=== PATIENT | male | born 1935 | race Caucasian/White ===

== ENCOUNTER → 2016-10-20 | Outpatient (CLI) | payer MEDICARE ==
[~2016-10-20] MED LIST: AMLO2.5T2 PO; AMLO5TAB2 PO; ASPI-496 PO; CARV-39 PO; CARV3.122 PO; CHOL20003 PO; CYAN50LO PO; FURO-93 PO; FURO20TA3 PO; GLIM2TAB2 PO; LISI2.5T PO; LISI40TA PO; POTA10TA31 PO; SIMV20TA3 PO; SIMV5TAB5 PO
== END | disposition home or self-care (01) ==
LOC: CVU 13:19
PROVIDERS: ATTEND Internal Medicine Cardiovascular Disease
DX: I87.2 Venous insufficiency (chronic) (peripheral) (principal); K21.9 Gastro-esophageal reflux disease without esophagitis
CPT/HCPCS: 93970

== ENCOUNTER 2016-12-09 10:16 | Emergency (ER) | payer MEDICARE ==
[~2016-12-09] VITALS: Ht 172.7 cm; Wt 114.0 kg
[2016-12-09 10:18] VITALS: BP 176/89
== END 2016-12-09 11:39 | disposition home or self-care (01) ==
LOC: ED 11:33
DX: M19.032 Primary osteoarthritis, left wrist (principal); M10.032 Idiopathic gout, left wrist; I10 Essential (primary) hypertension; E11.9 Type 2 diabetes mellitus without complications; Z90.49 Acquired absence of other specified parts of digestive tract
CPT/HCPCS: 29125; 36415; 84550; 85025; 99285

== ENCOUNTER 2017-12-22 14:00 | Emergency (ER) | payer MEDICARE ==
[~2017-12-22] VITALS: Ht 180.3 cm; Wt 110.7 kg
[~2017-12-22 14:00] MED LIST changes: +CHOL2000 PO; -CHOL20003 PO
[2017-12-22 16:09] LABS: ALBUMIN 3.7 g/dL (3.4-5.0); ANION GAP 10 mmol/L (5-15); BILIRUBIN, DIRECT 0.2 mg/dL (0.1-0.2); CALCIUM 8.3 mg/dL (8.5-10.1); CHLORIDE 110 mmol/L (98-107); CREATININE 1.95 mg/dL (0.7-1.3)
[2017-12-22 16:12] LABS: ALANINE AMINOTRANSFERASE 18 U/L (12-78); ALKALINE PHOSPHATASE 84 U/L (45-117); BILIRUBIN,INDIRECT 0.6 mg/dL (0.0-2.0); BILIRUBIN,TOTAL 0.8 mg/dL (0.2-1.0); TOTAL PROTEIN 7.1 g/dL (6.4-8.2)
[2017-12-22 16:25] LABS: BASOPHILS # (AUTO) 0.02 x10^3/uL (0-0.1); BASOPHILS % (AUTO) 0 % (0-1); EOSINOPHILS # (AUTO) 0.06 x10^3/uL (0-0.4); EOSINOPHILS % (AUTO) 1 % (1-7); LYMPHOCYTES % (AUTO) 15 % (22-44); MD NO; MEAN CORPUSCULAR HEMOGLOBIN 30.5 pg (27.5-34.5); MEAN CORPUSCULAR HGB CONC 33.9 g/dL (33.2-36.2); MEAN CORPUSCULAR VOLUME 89.8 fL (81-97); MEAN PLATELET VOLUME 9.9 fL (7.4-10.4); MONOCYTES # (AUTO) 0.81 x10^3/uL (0.2-0.8); MONOCYTES % (AUTO) 11 % (2-9); NEUTROPHILS # (AUTO) 5.41 x10^3/uL (1.8-6.8); NEUTROPHILS % (AUTO) 73 % (42-75); PLATELET COUNT 111 x10^3/uL (130-400); RED BLOOD COUNT 4.44 x10^6/uL (4.38-5.82); RED CELL DISTRIBUTION WIDTH 14.5 % (9.4-14.8)
[2017-12-22 17:27] VITALS: BP 164/78
[2017-12-26] MEDS ORDERED: ASPI-496 PO (08:44)
[2017-12-26] MEDS ORDERED: SODI325T PO (08:44)
[2017-12-29] MEDS ORDERED: GLIM1TAB PO (08:07)
[2017-12-29] MEDS ORDERED: AMIO200T42 PO (08:07)
[2017-12-29] MEDS ORDERED: METO-93 PO (08:07)
[2017-12-29] MEDS ORDERED: ISOS30TA8 PO (08:07)
[2017-12-29] MEDS ORDERED: SODI650T PO (08:07)
[2017-12-29] MEDS ORDERED: ATOR-2 PO (09:39)
== END 2017-12-22 18:05 | disposition home or self-care (01) ==
LOC: ED 17:00
DX: I87.2 Venous insufficiency (chronic) (peripheral) (principal); I50.9 Heart failure, unspecified; I10 Essential (primary) hypertension; E11.9 Type 2 diabetes mellitus without complications; M10.9 Gout, unspecified
CPT/HCPCS: 36415; 71045; 80048; 80076; 82040; 83735; 83880; 85025; 93005; 93970; 99285

== ENCOUNTER 2018-09-18 22:27 | Inpatient (IN) | payer MEDICARE ==
[~2018-09-18] VITALS: Ht 180.3 cm; Wt 102.2 kg
[~2018-09-18 22:27] MED LIST changes: +AMIO200T42 PO; +AMLO-150 PO; -AMLO5TAB2 PO; +ATOR-2 PO; +GLIM1TAB PO; +ISOS30TA8 PO; +METO-93 PO; +SIMV5TAB14 PO; -SIMV5TAB5 PO; +SODI325T PO; +SODI650T PO
--- NOTE | 2018-09-18 22:45 | NUR ---
PT PRESENTED WITH NON RADIATING CENTER CHEST PAIN THAT STARTED APPROX 1900 TODAY, DENIES SOB OR N/V. MONITORS APPLIED, SIDERAILS UP X2, CALL LIGHT WITHIN REACH. AWAITING ERP FOR EVAL AND ORDERS
[2018-09-18] MEDS ORDERED: SODIUM CHLORIDE FLUSH 10ML SYR IVF ONE (23:00)
[2018-09-18] MEDS ORDERED: AMLO2.5T5 PO (23:02)
[2018-09-18] MEDS ORDERED: VIT1CAPS42 PO ×2 (23:02→23:04)
[2018-09-18] MEDS ORDERED: ASCO500C2 PO (23:02)
[2018-09-18 23:25] LABS: BASOPHILS # (AUTO) 0.06 x10^3/uL (0-0.1); BASOPHILS % (AUTO) 1 % (0-1); EOSINOPHILS # (AUTO) 0.09 x10^3/uL (0-0.4); EOSINOPHILS % (AUTO) 1 % (1-7); LYMPHOCYTES # (AUTO) 1.12 x10^3/uL (1-3.4); LYMPHOCYTES % (AUTO) 15 % (22-44); MD NO; MEAN CORPUSCULAR HEMOGLOBIN 31.4 pg (27.5-34.5); MEAN CORPUSCULAR HGB CONC 33.9 g/dL (33.2-36.2); MEAN CORPUSCULAR VOLUME 92.4 fL (81-97); MEAN PLATELET VOLUME 9.3 fL (7.4-10.4); MONOCYTES # (AUTO) 0.64 x10^3/uL (0.2-0.8); MONOCYTES % (AUTO) 9 % (2-9); NEUTROPHILS # (AUTO) 5.56 x10^3/uL (1.8-6.8); NEUTROPHILS % (AUTO) 74 % (42-75); PLATELET COUNT 133 x10^3/uL (130-400); RED BLOOD COUNT 3.76 x10^6/uL (4.38-5.82); RED CELL DISTRIBUTION WIDTH 15.1 % (9.4-14.8)
[2018-09-18 23:37] LABS: ALANINE AMINOTRANSFERASE 22 U/L (12-78); ALBUMIN 3.7 g/dL (3.4-5.0); ANION GAP 10 mmol/L (5-15); CALCIUM 8.3 mg/dL (8.5-10.1); CHLORIDE 110 mmol/L (98-107); CREATININE 3.74 mg/dL (0.7-1.3); INTERNATIONAL NORMALIZED RATIO 1.03 (0.93-1.1); PROTHROMBIN TIME 10.8 Seconds (9.6-11.5)
[2018-09-18 23:41] LABS: ALKALINE PHOSPHATASE 122 U/L (45-117); BILIRUBIN,TOTAL 0.6 mg/dL (0.2-1.0); TOTAL PROTEIN 6.9 g/dL (6.4-8.2)
[2018-09-19] MEDS ORDERED: SODIUM CHLORIDE FLUSH 10ML SYR IVF ONE
[2018-09-19] MEDS ORDERED: ASPIRIN 81 MG TABLET CHEW PO ONE
[2018-09-19] MEDS ORDERED: SODIUM CHLORIDE 0.9% 1,000ML IVBOLUS ONE
[2018-09-19] MEDS ORDERED: ASPIRIN 81 MG TABLET CHEW ONE (00:11)
--- NOTE | 2018-09-19 00:19 | NUR ---
IV SITE STARTED, IV FLUIDS INFUSING, PT MEDICATED PER MAR
[2018-09-19] MEDS ORDERED: ENOXAPARIN 40 MG/0.4 ML SQ SCH (01:30)
[2018-09-19] MEDS ORDERED: hydrALAzine 20 MG/ML, 1ML IVPush PRN (01:30)
[2018-09-19] MEDS ORDERED: morphine SULFATE 10 MG/ML, 1ML IVPush PRN (01:30)
[2018-09-19] MEDS ORDERED: MAALOX/HYOSCYAMINE/LIDOCAINE 45 ML BTL PO PRN (01:30)
[2018-09-19] MEDS ORDERED: SIMETHICONE 125 MG CHEW TAB PO PRN (01:30)
[2018-09-19] MEDS ORDERED: ONDANSETRON ODT 4 MG PO PRN (01:30)
[2018-09-19] MEDS ORDERED: ACETAMINOPHEN 325 MG TABLET PO PRN (01:30)
[2018-09-19] MEDS ORDERED: DOCUSATE 100 MG CAPSULE PO PRN (01:30)
[2018-09-19] MEDS ORDERED: TEMAZEPAM 15 MG CAPSULE PO PRN (01:30)
--- NOTE | 2018-09-19 01:31 | NUR ---
PT ASSISTED FROM [facility] TO HOSPITAL BED, TOLERATED TRANSFER WELL. PT NOW RESTING IN BED, MONITORS IN PLACE, SIDERAILS UP X2, CALL LIGHT WITHIN REACH.
[2018-09-19] MEDS: SODIUM CHLORIDE 0.9% 500 ML IV SCH ×4 (02:16→22:16)
[2018-09-19] MEDS: POTASSIUM CHLORIDE 10 MEQ TABLET.ER PO SCH ×2 (03:30→09:00)
[2018-09-19] MEDS ORDERED: AMIO200T42 PO (03:32)
[2018-09-19 03:33] VITALS: BP 161/76
[2018-09-19] MEDS ORDERED: AMIODARONE MC SCH (05:30)
[2018-09-19 06:15] VITALS: BP 155/71
[2018-09-19] MEDS: ASPIRIN 81 MG TABLET EC PO SCH (06:17)
[2018-09-19] MEDS: METOPROLOL SUCCINATE 50 MG TAB.ER.24H PO SCH (06:17)
[2018-09-19] MEDS: INSULIN LISPRO 100 UNITS/ML, PEN SQ-INSULIN SCH ×4 (07:00→22:14)
[2018-09-19 07:18] VITALS: BP 159/80
[2018-09-19] MEDS: ISOSORBIDE MONONITRATE ER 30 MG TABLET PO SCH (09:00)
[2018-09-19] MEDS: ASCORBIC ACID 500 MG TABLET PO SCH (09:00)
[2018-09-19] MEDS: FUROSEMIDE 20 MG TABLET PO SCH (09:00)
[2018-09-19] MEDS ORDERED: AMIODARONE 200 MG TABLET PO SCH (09:00)
[2018-09-19] MEDS: AMLODIPINE 2.5 MG TABLET PO SCH (09:00)
[2018-09-19] MEDS: MULTIVITAMINS/MINERALS TABLET PO SCH ×2 (09:00→22:14)
[2018-09-19] MEDS: SODIUM BICARBONATE 650 MG TABLET PO SCH (09:00)
[2018-09-19] MEDS: ENOXAPARIN 30 MG/0.3 ML SQ SCH (09:44)
[2018-09-19 11:54] LABS: ANION GAP 8 mmol/L (5-15); CALCIUM 8.3 mg/dL (8.5-10.1); CHLORIDE 113 mmol/L (98-107); CREATININE 3.48 mg/dL (0.7-1.3)
[2018-09-19 12:49] VITALS: BP 144/74
[2018-09-19 20:00] VITALS: BP 159/73
[2018-09-19] MEDS: ATORVASTATIN 80 MG TABLET PO SCH (22:14)
[2018-09-20 02:00] VITALS: BP 159/83
[2018-09-20] MEDS: SODIUM CHLORIDE 0.9% 500 ML IV SCH ×2 (04:56→11:36)
[2018-09-20 06:03] LABS: BASOPHILS # (AUTO) 0.03 x10^3/uL (0-0.1); BASOPHILS % (AUTO) 0 % (0-1); EOSINOPHILS # (AUTO) 0.11 x10^3/uL (0-0.4); EOSINOPHILS % (AUTO) 1 % (1-7); LYMPHOCYTES # (AUTO) 1.27 x10^3/uL (1-3.4); LYMPHOCYTES % (AUTO) 16 % (22-44); MD NO; MEAN CORPUSCULAR HEMOGLOBIN 30.7 pg (27.5-34.5); MEAN CORPUSCULAR VOLUME 93.2 fL (81-97); MEAN PLATELET VOLUME 9.7 fL (7.4-10.4); MONOCYTES # (AUTO) 0.71 x10^3/uL (0.2-0.8); MONOCYTES % (AUTO) 9 % (2-9); NEUTROPHILS # (AUTO) 6.09 x10^3/uL (1.8-6.8); NEUTROPHILS % (AUTO) 74 % (42-75); PLATELET COUNT 142 x10^3/uL (130-400); RED BLOOD COUNT 3.85 x10^6/uL (4.38-5.82); RED CELL DISTRIBUTION WIDTH 15.2 % (9.4-14.8)
[2018-09-20 06:14] LABS: CHLORIDE 115 mmol/L (98-107)
[2018-09-20 06:19] LABS: ANION GAP 8 mmol/L (5-15); CALCIUM 8.4 mg/dL (8.5-10.1); CREATININE 3.76 mg/dL (0.7-1.3)
[2018-09-20 07:01] VITALS: BP 167/80
[2018-09-20] MEDS: METOPROLOL SUCCINATE 50 MG TAB.ER.24H PO SCH (07:03)
[2018-09-20] MEDS: ASPIRIN 81 MG TABLET EC PO SCH (07:03)
[2018-09-20 08:06] VITALS: BP 163/79
[2018-09-20] MEDS: INSULIN LISPRO 100 UNITS/ML, PEN SQ-INSULIN SCH ×4 (08:24→20:41)
[2018-09-20] MEDS: ENOXAPARIN 30 MG/0.3 ML SQ SCH (10:00)
[2018-09-20] MEDS: AMIODARONE 200 MG TABLET PO SCH (10:07)
[2018-09-20] MEDS: SODIUM BICARBONATE 650 MG TABLET PO SCH (10:07)
[2018-09-20] MEDS: FUROSEMIDE 20 MG TABLET PO SCH (10:08)
[2018-09-20] MEDS: MULTIVITAMINS/MINERALS TABLET PO SCH ×2 (10:08→20:41)
[2018-09-20] MEDS: AMLODIPINE 2.5 MG TABLET PO SCH (10:08)
[2018-09-20] MEDS: ASCORBIC ACID 500 MG TABLET PO SCH (10:08)
[2018-09-20] MEDS: POTASSIUM CHLORIDE 10 MEQ TABLET.ER PO SCH (10:09)
[2018-09-20] MEDS: CLOPIDOGREL 75 MG TABLET PO SCH (10:09)
[2018-09-20] MEDS: ISOSORBIDE MONONITRATE ER 30 MG TABLET PO SCH (10:09)
[2018-09-20 12:30] VITALS: BP 119/66
[2018-09-20 13:40] LABS: ALBUMIN 3.5 g/dL (3.4-5.0)
[2018-09-20 14:34] LABS: MICROSCOPIC AUTO
[2018-09-20 14:40] LABS: CULTURE INDICATED? YES
[2018-09-20 16:39] LABS: % IRON SATURATION 30 % (20-55); IRON LEVEL 51 mcg/dL (65-175); TOTAL IRON BINDING CAPACITY 172 mcg/dL (250-450)
[2018-09-20 20:00] VITALS: BP 143/68
[2018-09-20] MEDS: ATORVASTATIN 80 MG TABLET PO SCH (20:41)
[2018-09-21 02:00] VITALS: BP 152/76
[2018-09-21 05:20] LABS: ANION GAP 8 mmol/L (5-15); CALCIUM 8.6 mg/dL (8.5-10.1); CHLORIDE 115 mmol/L (98-107); CREATININE 3.56 mg/dL (0.7-1.3)
[2018-09-21 06:30] VITALS: BP 151/72
[2018-09-21] MEDS: ASPIRIN 81 MG TABLET EC PO SCH (06:32)
[2018-09-21] MEDS: METOPROLOL SUCCINATE 50 MG TAB.ER.24H PO SCH (06:32)
[2018-09-21] MEDS: INSULIN LISPRO 100 UNITS/ML, PEN SQ-INSULIN SCH ×4 (07:00→20:12)
[2018-09-21] MEDS ORDERED: PHARMACY MAY ADJ FOR RENAL FX MC PRN (08:00)
[2018-09-21] MEDS: POTASSIUM CHLORIDE 10 MEQ TABLET.ER PO SCH (08:33)
[2018-09-21] MEDS: MULTIVITAMINS/MINERALS TABLET PO SCH ×2 (08:33→20:12)
[2018-09-21] MEDS: TAMSULOSIN 0.4 MG CAP.ER.24H PO SCH (08:33)
[2018-09-21] MEDS: ASCORBIC ACID 500 MG TABLET PO SCH (08:34)
[2018-09-21] MEDS: FUROSEMIDE 20 MG TABLET PO SCH (08:35)
[2018-09-21] MEDS: ISOSORBIDE MONONITRATE ER 30 MG TABLET PO SCH (08:36)
[2018-09-21] MEDS: AMLODIPINE 2.5 MG TABLET PO SCH (08:37)
[2018-09-21] MEDS: CLOPIDOGREL 75 MG TABLET PO SCH (08:37)
[2018-09-21] MEDS: AMIODARONE 200 MG TABLET PO SCH (08:39)
[2018-09-21] MEDS: SODIUM BICARBONATE 650 MG TABLET PO SCH (08:40)
[2018-09-21] MEDS: CEFTRIAXONE PMX 1GM/50ML 50 ML IV SCH (09:55)
[2018-09-21] MEDS: ENOXAPARIN 30 MG/0.3 ML SQ SCH (12:04)
[2018-09-21 14:50] VITALS: BP 120/60
[2018-09-21 18:59] VITALS: BP 130/69
[2018-09-21] MEDS: ATORVASTATIN 80 MG TABLET PO SCH (20:11)
[2018-09-22 00:36] VITALS: BP 164/76
[2018-09-22 05:14] LABS: BASOPHILS # (AUTO) 0.03 x10^3/uL (0-0.1); BASOPHILS % (AUTO) 0 % (0-1); EOSINOPHILS # (AUTO) 0.22 x10^3/uL (0-0.4); EOSINOPHILS % (AUTO) 3 % (1-7); LYMPHOCYTES # (AUTO) 1.76 x10^3/uL (1-3.4); LYMPHOCYTES % (AUTO) 22 % (22-44); MD NO; MEAN CORPUSCULAR HEMOGLOBIN 31.2 pg (27.5-34.5); MEAN CORPUSCULAR VOLUME 91.7 fL (81-97); MEAN PLATELET VOLUME 9.5 fL (7.4-10.4); MONOCYTES # (AUTO) 0.72 x10^3/uL (0.2-0.8); MONOCYTES % (AUTO) 9 % (2-9); NEUTROPHILS # (AUTO) 5.13 x10^3/uL (1.8-6.8); NEUTROPHILS % (AUTO) 65 % (42-75); PLATELET COUNT 133 x10^3/uL (130-400); RED BLOOD COUNT 3.63 x10^6/uL (4.38-5.82); RED CELL DISTRIBUTION WIDTH 15.3 % (9.4-14.8)
[2018-09-22 05:17] LABS: ANION GAP 7 mmol/L (5-15); CALCIUM 8.4 mg/dL (8.5-10.1); CHLORIDE 116 mmol/L (98-107); CREATININE 3.46 mg/dL (0.7-1.3)
[2018-09-22 06:03] VITALS: BP 138/75
[2018-09-22] MEDS: ASPIRIN 81 MG TABLET EC PO SCH (06:05)
[2018-09-22] MEDS: METOPROLOL SUCCINATE 50 MG TAB.ER.24H PO SCH (06:05)
[2018-09-22] MEDS: INSULIN LISPRO 100 UNITS/ML, PEN SQ-INSULIN SCH ×4 (07:00→20:33)
[2018-09-22] MEDS: CLOPIDOGREL 75 MG TABLET PO SCH (08:57)
[2018-09-22] MEDS: AMIODARONE 200 MG TABLET PO SCH (08:58)
[2018-09-22] MEDS: TAMSULOSIN 0.4 MG CAP.ER.24H PO SCH (08:58)
[2018-09-22] MEDS: POTASSIUM CHLORIDE 10 MEQ TABLET.ER PO SCH (08:58)
[2018-09-22] MEDS: FUROSEMIDE 20 MG TABLET PO SCH (08:59)
[2018-09-22] MEDS: MULTIVITAMINS/MINERALS TABLET PO SCH ×2 (08:59→20:33)
[2018-09-22] MEDS: SODIUM BICARBONATE 650 MG TABLET PO SCH (08:59)
[2018-09-22] MEDS: ASCORBIC ACID 500 MG TABLET PO SCH (08:59)
[2018-09-22] MEDS: AMLODIPINE 2.5 MG TABLET PO SCH (08:59)
[2018-09-22] MEDS: ISOSORBIDE MONONITRATE ER 30 MG TABLET PO SCH (09:00)
[2018-09-22] MEDS: CEFTRIAXONE PMX 1GM/50ML 50 ML IV SCH (09:10)
[2018-09-22] MEDS: ENOXAPARIN 30 MG/0.3 ML SQ SCH (10:07)
[2018-09-22 13:26] VITALS: BP 122/67
[2018-09-22 20:14] VITALS: BP 151/73
[2018-09-22] MEDS: ATORVASTATIN 80 MG TABLET PO SCH (20:33)
[2018-09-23 00:31] VITALS: BP 152/71
[2018-09-23 05:21] LABS: ANION GAP 7 mmol/L (5-15); CHLORIDE 116 mmol/L (98-107)
[2018-09-23 05:22] LABS: CREATININE 3.37 mg/dL (0.7-1.3)
[2018-09-23 05:44] VITALS: BP 161/67
[2018-09-23] MEDS: ASPIRIN 81 MG TABLET EC PO SCH (05:44)
[2018-09-23] MEDS: METOPROLOL SUCCINATE 50 MG TAB.ER.24H PO SCH (05:44)
[2018-09-23 06:24] VITALS: BP 150/67
[2018-09-23] MEDS: INSULIN LISPRO 100 UNITS/ML, PEN SQ-INSULIN SCH ×4 (07:15→20:05)
[2018-09-23] MEDS: AMLODIPINE 2.5 MG TABLET PO SCH (08:08)
[2018-09-23] MEDS: MULTIVITAMINS/MINERALS TABLET PO SCH ×2 (08:08→20:06)
[2018-09-23] MEDS: CLOPIDOGREL 75 MG TABLET PO SCH (08:08)
[2018-09-23] MEDS: SODIUM BICARBONATE 650 MG TABLET PO SCH (08:08)
[2018-09-23] MEDS: AMIODARONE 200 MG TABLET PO SCH (08:09)
[2018-09-23] MEDS: ASCORBIC ACID 500 MG TABLET PO SCH (08:09)
[2018-09-23] MEDS: POTASSIUM CHLORIDE 10 MEQ TABLET.ER PO SCH (08:09)
[2018-09-23] MEDS: ISOSORBIDE MONONITRATE ER 30 MG TABLET PO SCH (08:09)
[2018-09-23] MEDS: TAMSULOSIN 0.4 MG CAP.ER.24H PO SCH (08:10)
[2018-09-23] MEDS: FUROSEMIDE 20 MG TABLET PO SCH (08:10)
[2018-09-23] MEDS: CEFTRIAXONE PMX 1GM/50ML 50 ML IV SCH (09:06)
[2018-09-23] MEDS: ENOXAPARIN 30 MG/0.3 ML SQ SCH (11:17)
[2018-09-23 12:12] VITALS: BP 145/68
[2018-09-23] MEDS: PIPERACILLIN/TAZO(ZOSYN) 2.25 GM in NS 50 ML IVPB SCH ×2 (15:06→21:18)
[2018-09-23 18:38] VITALS: BP 145/68
[2018-09-23] MEDS: ATORVASTATIN 80 MG TABLET PO SCH (20:06)
[2018-09-24] MEDS: PIPERACILLIN/TAZO/PMX 2.25GM 50 ML IVPB SCH ×4 (03:06→21:37)
[2018-09-24 05:12] LABS: CALCIUM 8.1 mg/dL (8.5-10.1); CHLORIDE 114 mmol/L (98-107)
[2018-09-24 05:17] LABS: ALANINE AMINOTRANSFERASE 18 U/L (12-78); ALBUMIN 3.2 g/dL (3.4-5.0); ALKALINE PHOSPHATASE 94 U/L (45-117); ANION GAP 5 mmol/L (5-15); BILIRUBIN,TOTAL 0.6 mg/dL (0.2-1.0); CREATININE 3.22 mg/dL (0.7-1.3); TOTAL PROTEIN 6.2 g/dL (6.4-8.2)
[2018-09-24 05:36] VITALS: BP 158/71
[2018-09-24] MEDS: ASPIRIN 81 MG TABLET EC PO SCH (05:39)
[2018-09-24] MEDS: METOPROLOL SUCCINATE 50 MG TAB.ER.24H PO SCH (05:39)
[2018-09-24 06:26] VITALS: BP 160/72
[2018-09-24] MEDS: INSULIN LISPRO 100 UNITS/ML, PEN SQ-INSULIN SCH ×4 (07:08→21:00)
[2018-09-24] MEDS: POTASSIUM CHLORIDE 10 MEQ TABLET.ER PO SCH (08:41)
[2018-09-24] MEDS: AMIODARONE 200 MG TABLET PO SCH (08:41)
[2018-09-24] MEDS: TAMSULOSIN 0.4 MG CAP.ER.24H PO SCH (08:41)
[2018-09-24] MEDS: CLOPIDOGREL 75 MG TABLET PO SCH (08:41)
[2018-09-24] MEDS: ISOSORBIDE MONONITRATE ER 30 MG TABLET PO SCH (08:41)
[2018-09-24] MEDS: SODIUM BICARBONATE 650 MG TABLET PO SCH (08:41)
[2018-09-24] MEDS: ASCORBIC ACID 500 MG TABLET PO SCH (08:41)
[2018-09-24] MEDS: MULTIVITAMINS/MINERALS TABLET PO SCH ×2 (08:41→21:37)
[2018-09-24] MEDS: FUROSEMIDE 20 MG TABLET PO SCH (08:42)
[2018-09-24] MEDS: AMLODIPINE 2.5 MG TABLET PO SCH (08:42)
[2018-09-24] MEDS: ENOXAPARIN 30 MG/0.3 ML SQ SCH (10:04)
[2018-09-24 12:02] VITALS: BP 122/71
[2018-09-24 19:23] VITALS: BP 126/63
[2018-09-24] MEDS ORDERED: NAPHAZOLINE/PHENIRAMINE OPHTH LEFTEYE PRN (21:00)
[2018-09-24] MEDS: ATORVASTATIN 80 MG TABLET PO SCH (21:37)
[2018-09-25 03:30] VITALS: BP 151/77
[2018-09-25] MEDS: PIPERACILLIN/TAZO/PMX 2.25GM 50 ML IVPB SCH ×3 (04:32→17:00)
[2018-09-25] MEDS: METOPROLOL SUCCINATE 50 MG TAB.ER.24H PO SCH (05:47)
[2018-09-25] MEDS: ASPIRIN 81 MG TABLET EC PO SCH (05:47)
[2018-09-25 06:23] VITALS: BP 168/74
[2018-09-25] MEDS: INSULIN LISPRO 100 UNITS/ML, PEN SQ-INSULIN SCH ×4 (07:00→20:09)
[2018-09-25] MEDS ORDERED: CLOP75TA PO (08:35)
[2018-09-25] MEDS ORDERED: TAMS-11 PO (08:35)
[2018-09-25] MEDS ORDERED: Maalox/Hyoscyamine/Lidocaine PO (08:35)
[2018-09-25] MEDS ORDERED: LACT1TAB13 PO (08:35)
[2018-09-25] MEDS ORDERED: AMPI500C2 PO ×2 (08:35)
[2018-09-25] MEDS: POTASSIUM CHLORIDE 10 MEQ TABLET.ER PO SCH (08:47)
[2018-09-25] MEDS: ASCORBIC ACID 500 MG TABLET PO SCH (08:47)
[2018-09-25] MEDS: SODIUM BICARBONATE 650 MG TABLET PO SCH (08:47)
[2018-09-25] MEDS: CLOPIDOGREL 75 MG TABLET PO SCH (08:48)
[2018-09-25] MEDS: TAMSULOSIN 0.4 MG CAP.ER.24H PO SCH (08:48)
[2018-09-25] MEDS: MULTIVITAMINS/MINERALS TABLET PO SCH ×2 (08:48→20:04)
[2018-09-25] MEDS: AMIODARONE 200 MG TABLET PO SCH (08:48)
[2018-09-25] MEDS: FUROSEMIDE 20 MG TABLET PO SCH (08:49)
[2018-09-25] MEDS: ISOSORBIDE MONONITRATE ER 30 MG TABLET PO SCH (08:49)
[2018-09-25] MEDS: AMLODIPINE 2.5 MG TABLET PO SCH (08:49)
[2018-09-25] MEDS: ENOXAPARIN 30 MG/0.3 ML SQ SCH (08:53)
[2018-09-25 11:05] VITALS: BP 111/63
[2018-09-25 13:17] VITALS: BP 110/61
[2018-09-25] MEDS: LACTOBACILLUS CHEW TABLET PO SCH ×2 (17:30→20:04)
[2018-09-25 20:00] VITALS: BP 146/71
[2018-09-25] MEDS: ATORVASTATIN 80 MG TABLET PO SCH (20:04)
[2018-09-25] MEDS: AMPICILLIN 500MG CAPSULE PO SCH (20:04)
[2018-09-26 03:00] VITALS: BP 124/66
[2018-09-26] MEDS: AMPICILLIN 500MG CAPSULE PO SCH ×2 (03:00→09:00)
[2018-09-26] MEDS ORDERED: METOPROLOL SUCCINATE 25 MG TAB.ER.24H ONE (05:34)
[2018-09-26] MEDS: ASPIRIN 81 MG TABLET EC PO SCH (05:40)
[2018-09-26] MEDS: METOPROLOL SUCCINATE 50 MG TAB.ER.24H PO SCH (05:40)
[2018-09-26] MEDS: INSULIN LISPRO 100 UNITS/ML, PEN SQ-INSULIN SCH ×2 (07:00→11:00)
[2018-09-26 07:06] LABS: ALBUMIN 3.1 g/dL (3.4-5.0); ANION GAP 8 mmol/L (5-15); CALCIUM 8.3 mg/dL (8.5-10.1); CHLORIDE 114 mmol/L (98-107)
[2018-09-26 07:59] VITALS: BP 129/76
[2018-09-26] MEDS ORDERED: CIPR500T87 PO ×2 (08:51)
[2018-09-26] MEDS: AMIODARONE 200 MG TABLET PO SCH (08:55)
[2018-09-26] MEDS: TAMSULOSIN 0.4 MG CAP.ER.24H PO SCH (08:55)
[2018-09-26] MEDS: CLOPIDOGREL 75 MG TABLET PO SCH (08:56)
[2018-09-26] MEDS: FUROSEMIDE 20 MG TABLET PO SCH (08:56)
[2018-09-26] MEDS: AMLODIPINE 2.5 MG TABLET PO SCH (08:56)
[2018-09-26] MEDS: LACTOBACILLUS CHEW TABLET PO SCH (08:56)
[2018-09-26] MEDS: MULTIVITAMINS/MINERALS TABLET PO SCH (08:56)
[2018-09-26] MEDS: POTASSIUM CHLORIDE 10 MEQ TABLET.ER PO SCH (08:56)
[2018-09-26] MEDS: ASCORBIC ACID 500 MG TABLET PO SCH (08:56)
[2018-09-26] MEDS: ISOSORBIDE MONONITRATE ER 30 MG TABLET PO SCH (08:56)
[2018-09-26] MEDS: SODIUM BICARBONATE 650 MG TABLET PO SCH (08:56)
[2018-09-26] MEDS ORDERED: LEVO500T47 PO (09:10)
[2018-09-26] MEDS ORDERED: LEVOFLOXACIN 500 MG TABLET PO SCH (10:00)
[2018-09-26] MEDS ORDERED: CIPROFLOXACIN 500 MG TABLET PO ONE (10:00)
[2018-09-26] MEDS: ENOXAPARIN 30 MG/0.3 ML SQ SCH (10:41)
[2018-09-26 11:30] VITALS: BP 132/80
== END 2018-09-26 12:25 | disposition home or self-care (01) | DRG 280 ==
LOC: ED 23:35 → EDIP 09-19 00:01 → 4WST 09-19 02:46 → 5SO 09-19 13:30 → 4NOR 09-26 03:54 → DCLOUNGE 09-26 11:59
PROVIDERS: ADMIT Internal Medicine; ATTEND Internal Medicine
PROC: 0T9B70Z Drainage of Bladder with Drainage Device, Via Natural or Artificial Opening (ICD-10-PCS; principal; 2018-09-20)
DX: I21.4 Non-ST elevation (NSTEMI) myocardial infarction (principal); I50.23 Acute on chronic systolic (congestive) heart failure; N17.0 Acute kidney failure with tubular necrosis; I13.0 Hypertensive heart and chronic kidney disease with heart failure and stage 1 through stage 4 chronic kidney disease, or unspecified chronic kidney disease; N18.4 Chronic kidney disease, stage 4 (severe); E87.2 Acidosis; N39.0 Urinary tract infection, site not specified; Z90.49 Acquired absence of other specified parts of digestive tract; E11.22 Type 2 diabetes mellitus with diabetic chronic kidney disease; D64.9 Anemia, unspecified; E78.5 Hyperlipidemia, unspecified; H35.30 Unspecified macular degeneration; R33.9 Retention of urine, unspecified; M10.9 Gout, unspecified; B95.2 Enterococcus as the cause of diseases classified elsewhere; I25.119 Atherosclerotic heart disease of native coronary artery with unspecified angina pectoris; I25.2 Old myocardial infarction; I25.5 Ischemic cardiomyopathy; I48.91 Unspecified atrial fibrillation; R32 Unspecified urinary incontinence; K59.00 Constipation, unspecified; Z85.828 Personal history of other malignant neoplasm of skin; Z79.899 Other long term (current) drug therapy
CPT/HCPCS: 36415; 71045; 80048; 80053; 80069; 81001; 82962; 83036; 83540; 83550; 83735; 83880; 84100; 84484; 84550; 85025; 85610; 85730; 87077; 87086; 87186; 93005; 93306; 96360; 96361; G0378; J0696; J1650; J2543; J1815; J7030

== ENCOUNTER 2018-11-26 20:49 | Inpatient (IN) | payer MEDICARE ==
[~2018-11-26] VITALS: Ht 185.4 cm; Wt 101.7 kg
[~2018-11-26 20:49] MED LIST changes: +AMLO2.5T5 PO; +AMPI500C2 PO; +ASCO500C2 PO; +CIPR500T87 PO; +CLOP75TA PO; +LACT1TAB13 PO; +LEVO500T47 PO; +Maalox/Hyoscyamine/Lidocaine PO; +TAMS-11 PO; +VIT1CAPS42 PO
--- NOTE | 2018-11-26 21:39 | NUR ---
PT TO ROOM FROM LOBBY
[2018-11-27] MEDS ORDERED: SODIUM CHLORIDE FLUSH 10ML SYR IVF ONE
[2018-11-27 00:36] LABS: BASOPHILS # (AUTO) 0.14 x10^3/uL (0-0.1); BASOPHILS % (AUTO) 1 % (0-1); EOSINOPHILS # (AUTO) 0.11 x10^3/uL (0-0.4); EOSINOPHILS % (AUTO) 1 % (1-7); LYMPHOCYTES # (AUTO) 0.58 x10^3/uL (1-3.4); LYMPHOCYTES % (AUTO) 6 % (22-44); MD NO; MEAN CORPUSCULAR HEMOGLOBIN 31.5 pg (27.5-34.5); MEAN CORPUSCULAR HGB CONC 33.8 g/dL (33.2-36.2); MEAN CORPUSCULAR VOLUME 93.3 fL (81-97); MEAN PLATELET VOLUME 9.1 fL (7.4-10.4); MONOCYTES # (AUTO) 0.48 x10^3/uL (0.2-0.8); MONOCYTES % (AUTO) 5 % (2-9); NEUTROPHILS # (AUTO) 8.41 x10^3/uL (1.8-6.8); NEUTROPHILS % (AUTO) 87 % (42-75); PLATELET COUNT 124 x10^3/uL (130-400); RED BLOOD COUNT 3.89 x10^6/uL (4.38-5.82); RED CELL DISTRIBUTION WIDTH 16.1 % (9.4-14.8)
[2018-11-27 00:47] LABS: INTERNATIONAL NORMALIZED RATIO 1.02 (0.93-1.1); PROTHROMBIN TIME 10.7 Seconds (9.6-11.5)
[2018-11-27 00:48] LABS: ANION GAP 8 mmol/L (5-15); CALCIUM 8.6 mg/dL (8.5-10.1); CHLORIDE 109 mmol/L (98-107); CREATININE 2.74 mg/dL (0.7-1.3)
--- NOTE | 2018-11-27 00:55 | NUR ---
[address] CATHETER INSERTERED WTIH CBI STARTED. DRAINING PINK, BLOOD TINGED URINE. PT ACTIVELY VOMITING. PT CLEANED AND GOWN CHANGED. IV STARTED. PT PLACED ON VITALS MONITORS.
[2018-11-27 01:09] LABS: CULTURE INDICATED? YES; MICROSCOPIC INDICATED
[2018-11-27] MEDS ORDERED: CEFTRIAXONE PMX 1GM/50ML 50 ML IV ONE (01:30)
--- NOTE | 2018-11-27 01:45 | NUR ---
[facility] does not want blood cultures drawn before abx administered.
--- NOTE | 2018-11-27 01:47 | NUR ---
REPORT CALLED TO MICHOACANO WOOD
[2018-11-27] MEDS ORDERED: CEFTRIAXONE PMX 1GM/50ML 50 ML ONE (01:51)
[2018-11-27] MEDS ORDERED: ONDANSETRON 2MG/ML, 2ML ONE (01:51)
[2018-11-27] MEDS ORDERED: ONDANSETRON 2MG/ML, 2ML IVPush ONE (02:00)
[2018-11-27 06:25] VITALS: BP 112/69
[2018-11-27] MEDS: ASPIRIN 81 MG TABLET EC PO SCH (06:25)
[2018-11-27] MEDS: INSULIN LISPRO 100 UNITS/ML, PEN SQ-INSULIN SCH ×4 (07:22→20:48)
[2018-11-27] MEDS: CLOPIDOGREL 75 MG TABLET PO SCH (07:28)
[2018-11-27] MEDS ORDERED: PHARMACY MAY ADJ FOR RENAL FX MC PRN (08:00)
[2018-11-27 08:23] LABS: MD YES; MEAN CORPUSCULAR HEMOGLOBIN 31.2 pg (27.5-34.5); MEAN CORPUSCULAR HGB CONC 33.2 g/dL (33.2-36.2); MEAN CORPUSCULAR VOLUME 94.1 fL (81-97); MEAN PLATELET VOLUME 9.3 fL (7.4-10.4); PLATELET COUNT 104 x10^3/uL (130-400); RED BLOOD COUNT 3.41 x10^6/uL (4.38-5.82); RED CELL DISTRIBUTION WIDTH 15.9 % (9.4-14.8)
[2018-11-27] MEDS: PIPERACILLIN/TAZO/PMX 2.25GM 50 ML IVPB SCH ×3 (08:37→20:48)
[2018-11-27] MEDS: ISOSORBIDE MONONITRATE ER 30 MG TABLET PO SCH (08:37)
[2018-11-27] MEDS: AMIODARONE 200 MG TABLET PO SCH (08:37)
[2018-11-27] MEDS: TAMSULOSIN 0.4 MG CAP.ER.24H PO SCH (08:37)
[2018-11-27] MEDS: AMLODIPINE 2.5 MG TABLET PO SCH (08:38)
[2018-11-27 08:52] LABS: BAND#(MANUAL) 0.15 x10^3/uL; BANDS%(MANUAL) 1 % (0-7); LYMPH#(MANUAL) 0.89 x10^3/uL (1-3.4); LYMPHS% (MANUAL) 6 % (22-44); MONOS#(MANUAL) 0.74 x10^3/uL (0.3-2.7); MONOS% (MANUAL) 5 % (2-9); SEG#(MANUAL) 13.02 x10^3/uL (1.8-6.8); SEGS% (MANUAL) 88 % (42-75)
[2018-11-27 08:53] LABS: ANISOCYTOSIS 1+; OVALOCYTES 1+
[2018-11-27 08:54] LABS: <PLATELET ESTIMATE> DECREASED; <PLT MORPHOLOGY> NORMAL PLT MORPH; ECHINOCYTES 1+
[2018-11-27 12:25] VITALS: BP 105/62
[2018-11-27 20:32] VITALS: BP 107/58
[2018-11-27] MEDS: ATORVASTATIN 80 MG TABLET PO SCH (20:48)
[2018-11-27 21:51] LABS: CULTURE INDICATED? YES; MICROSCOPIC INDICATED
[2018-11-28 02:12] VITALS: BP 115/69
[2018-11-28] MEDS: PIPERACILLIN/TAZO/PMX 2.25GM 50 ML IVPB SCH ×4 (02:16→20:05)
[2018-11-28 05:57] LABS: ANION GAP 9 mmol/L (5-15); CALCIUM 7.9 mg/dL (8.5-10.1); CHLORIDE 113 mmol/L (98-107); CREATININE 2.96 mg/dL (0.7-1.3)
[2018-11-28 06:16] VITALS: BP 140/76
[2018-11-28] MEDS: INSULIN LISPRO 100 UNITS/ML, PEN SQ-INSULIN SCH ×4 (06:28→21:00)
[2018-11-28] MEDS: ASPIRIN 81 MG TABLET EC PO SCH (06:28)
[2018-11-28] MEDS: METOPROLOL SUCCINATE 50 MG TAB.ER.24H PO SCH (06:28)
[2018-11-28 06:59] LABS: BASOPHILS # (AUTO) 0.04 x10^3/uL (0-0.1); BASOPHILS % (AUTO) 0 % (0-1); EOSINOPHILS # (AUTO) 0.11 x10^3/uL (0-0.4); EOSINOPHILS % (AUTO) 1 % (1-7); LYMPHOCYTES # (AUTO) 1.36 x10^3/uL (1-3.4); LYMPHOCYTES % (AUTO) 15 % (22-44); MD SCAN; MEAN CORPUSCULAR HEMOGLOBIN 31.7 pg (27.5-34.5); MEAN CORPUSCULAR HGB CONC 34.2 g/dL (33.2-36.2); MEAN CORPUSCULAR VOLUME 92.7 fL (81-97); MEAN PLATELET VOLUME 9.5 fL (7.4-10.4); MONOCYTES # (AUTO) 0.97 x10^3/uL (0.2-0.8); MONOCYTES % (AUTO) 11 % (2-9); NEUTROPHILS # (AUTO) 6.65 x10^3/uL (1.8-6.8); NEUTROPHILS % (AUTO) 73 % (42-75); PLATELET COUNT 98 x10^3/uL (130-400); RED BLOOD COUNT 3.22 x10^6/uL (4.38-5.82); RED CELL DISTRIBUTION WIDTH 16.2 % (9.4-14.8)
[2018-11-28 07:40] VITALS: BP 118/62
[2018-11-28] MEDS: AMLODIPINE 2.5 MG TABLET PO SCH (08:24)
[2018-11-28] MEDS: TAMSULOSIN 0.4 MG CAP.ER.24H PO SCH (08:24)
[2018-11-28] MEDS: CLOPIDOGREL 75 MG TABLET PO SCH (08:24)
[2018-11-28] MEDS: ISOSORBIDE MONONITRATE ER 30 MG TABLET PO SCH (08:25)
[2018-11-28] MEDS: AMIODARONE 200 MG TABLET PO SCH (08:25)
[2018-11-28 13:22] VITALS: BP 98/47
[2018-11-28 20:03] VITALS: BP 107/57
[2018-11-28] MEDS: ATORVASTATIN 80 MG TABLET PO SCH (20:05)
[2018-11-29 01:32] VITALS: BP 116/70
[2018-11-29] MEDS: PIPERACILLIN/TAZO/PMX 2.25GM 50 ML IVPB SCH ×4 (02:53→20:03)
[2018-11-29 05:17] LABS: BASOPHILS # (AUTO) 0.02 x10^3/uL (0-0.1); BASOPHILS % (AUTO) 0 % (0-1); EOSINOPHILS # (AUTO) 0.14 x10^3/uL (0-0.4); EOSINOPHILS % (AUTO) 2 % (1-7); LYMPHOCYTES # (AUTO) 1.38 x10^3/uL (1-3.4); LYMPHOCYTES % (AUTO) 15 % (22-44); MD NO; MEAN CORPUSCULAR HEMOGLOBIN 31.5 pg (27.5-34.5); MEAN CORPUSCULAR HGB CONC 33.9 g/dL (33.2-36.2); MEAN CORPUSCULAR VOLUME 93.2 fL (81-97); MEAN PLATELET VOLUME 10.3 fL (7.4-10.4); MONOCYTES # (AUTO) 0.82 x10^3/uL (0.2-0.8); MONOCYTES % (AUTO) 9 % (2-9); NEUTROPHILS # (AUTO) 7.01 x10^3/uL (1.8-6.8); NEUTROPHILS % (AUTO) 75 % (42-75); PLATELET COUNT 110 x10^3/uL (130-400); RED BLOOD COUNT 3.44 x10^6/uL (4.38-5.82)
[2018-11-29 05:30] LABS: CHLORIDE 111 mmol/L (98-107)
[2018-11-29 05:39] LABS: ALANINE AMINOTRANSFERASE 28 U/L (12-78); ALBUMIN 3.4 g/dL (3.4-5.0); ALKALINE PHOSPHATASE 76 U/L (45-117); ANION GAP 10 mmol/L (5-15); BILIRUBIN,TOTAL 0.5 mg/dL (0.2-1.0); CALCIUM 8.3 mg/dL (8.5-10.1); CREATININE 3.13 mg/dL (0.7-1.3); TOTAL PROTEIN 6.6 g/dL (6.4-8.2)
[2018-11-29] MEDS: ASPIRIN 81 MG TABLET EC PO SCH (06:28)
[2018-11-29] MEDS: METOPROLOL SUCCINATE 50 MG TAB.ER.24H PO SCH (06:28)
[2018-11-29] MEDS: INSULIN LISPRO 100 UNITS/ML, PEN SQ-INSULIN SCH ×4 (06:36→21:47)
[2018-11-29 07:35] VITALS: BP 123/79
[2018-11-29] MEDS: ISOSORBIDE MONONITRATE ER 30 MG TABLET PO SCH (08:44)
[2018-11-29] MEDS: TAMSULOSIN 0.4 MG CAP.ER.24H PO SCH (08:44)
[2018-11-29] MEDS: AMIODARONE 200 MG TABLET PO SCH (08:44)
[2018-11-29] MEDS: AMLODIPINE 2.5 MG TABLET PO SCH (08:45)
[2018-11-29] MEDS: CLOPIDOGREL 75 MG TABLET PO SCH (08:45)
[2018-11-29] MEDS ORDERED: MAGNESIUM HYDROXIDE 8%, 30ML UDC PO PRN (11:00)
[2018-11-29] MEDS ORDERED: DOCUSATE 100 MG CAPSULE PO PRN (11:00)
[2018-11-29] MEDS ORDERED: SIMETHICONE 80 MG CHEW TAB PO PRN (11:00)
[2018-11-29 13:20] VITALS: BP 120/69
[2018-11-29 18:53] VITALS: BP 125/73
[2018-11-29] MEDS: ATORVASTATIN 80 MG TABLET PO SCH (20:02)
[2018-11-30 00:10] VITALS: BP 126/75
[2018-11-30] MEDS: PIPERACILLIN/TAZO/PMX 2.25GM 50 ML IVPB SCH ×4 (02:05→19:51)
[2018-11-30 04:55] LABS: BASOPHILS # (AUTO) 0.02 x10^3/uL (0-0.1); BASOPHILS % (AUTO) 0 % (0-1); EOSINOPHILS % (AUTO) 3 % (1-7); LYMPHOCYTES # (AUTO) 1.34 x10^3/uL (1-3.4); LYMPHOCYTES % (AUTO) 17 % (22-44); MD NO; MEAN CORPUSCULAR HEMOGLOBIN 31.7 pg (27.5-34.5); MEAN CORPUSCULAR HGB CONC 34.1 g/dL (33.2-36.2); MEAN CORPUSCULAR VOLUME 92.9 fL (81-97); MEAN PLATELET VOLUME 10.4 fL (7.4-10.4); MONOCYTES # (AUTO) 0.78 x10^3/uL (0.2-0.8); MONOCYTES % (AUTO) 10 % (2-9); NEUTROPHILS # (AUTO) 5.36 x10^3/uL (1.8-6.8); NEUTROPHILS % (AUTO) 70 % (42-75); PLATELET COUNT 108 x10^3/uL (130-400); RED BLOOD COUNT 3.15 x10^6/uL (4.38-5.82); RED CELL DISTRIBUTION WIDTH 16.3 % (9.4-14.8)
[2018-11-30 05:08] LABS: ANION GAP 7 mmol/L (5-15); CALCIUM 8.3 mg/dL (8.5-10.1); CHLORIDE 114 mmol/L (98-107); CREATININE 2.82 mg/dL (0.7-1.3)
[2018-11-30 05:09] LABS: ALBUMIN 3.1 g/dL (3.4-5.0)
[2018-11-30 05:13] LABS: ALANINE AMINOTRANSFERASE 25 U/L (12-78); ALKALINE PHOSPHATASE 72 U/L (45-117); BILIRUBIN,TOTAL 0.5 mg/dL (0.2-1.0); TOTAL PROTEIN 5.9 g/dL (6.4-8.2)
[2018-11-30] MEDS: METOPROLOL SUCCINATE 50 MG TAB.ER.24H PO SCH (06:47)
[2018-11-30] MEDS: ASPIRIN 81 MG TABLET EC PO SCH (06:47)
[2018-11-30] MEDS: INSULIN LISPRO 100 UNITS/ML, PEN SQ-INSULIN SCH ×4 (06:48→23:05)
[2018-11-30] MEDS: CLOPIDOGREL 75 MG TABLET PO SCH (08:16)
[2018-11-30] MEDS: ISOSORBIDE MONONITRATE ER 30 MG TABLET PO SCH (08:16)
[2018-11-30] MEDS: TAMSULOSIN 0.4 MG CAP.ER.24H PO SCH (08:17)
[2018-11-30] MEDS: AMIODARONE 200 MG TABLET PO SCH (08:17)
[2018-11-30] MEDS: AMLODIPINE 2.5 MG TABLET PO SCH (08:17)
[2018-11-30 09:28] VITALS: BP 120/56
[2018-11-30 14:48] VITALS: BP 124/56
[2018-11-30 18:43] VITALS: BP 105/56
[2018-11-30] MEDS: ATORVASTATIN 80 MG TABLET PO SCH (19:51)
[2018-12-01] MEDS: PIPERACILLIN/TAZO/PMX 2.25GM 50 ML IVPB SCH ×3 (02:07→14:02)
[2018-12-01 03:55] VITALS: BP 126/73
[2018-12-01 05:41] LABS: ALBUMIN 3.1 g/dL (3.4-5.0); ANION GAP 7 mmol/L (5-15); CALCIUM 8.1 mg/dL (8.5-10.1); CHLORIDE 113 mmol/L (98-107)
[2018-12-01 05:45] LABS: ALANINE AMINOTRANSFERASE 25 U/L (12-78); ALKALINE PHOSPHATASE 72 U/L (45-117); BILIRUBIN,TOTAL 0.6 mg/dL (0.2-1.0); CREATININE 2.74 mg/dL (0.7-1.3); TOTAL PROTEIN 5.9 g/dL (6.4-8.2)
[2018-12-01 06:18] LABS: BASOPHILS # (AUTO) 0.02 x10^3/uL (0-0.1); BASOPHILS % (AUTO) 0 % (0-1); EOSINOPHILS # (AUTO) 0.24 x10^3/uL (0-0.4); EOSINOPHILS % (AUTO) 4 % (1-7); LYMPHOCYTES # (AUTO) 1.17 x10^3/uL (1-3.4); LYMPHOCYTES % (AUTO) 20 % (22-44); MD NO; MEAN CORPUSCULAR HEMOGLOBIN 31.7 pg (27.5-34.5); MEAN CORPUSCULAR VOLUME 93.3 fL (81-97); MEAN PLATELET VOLUME 10.9 fL (7.4-10.4); MONOCYTES % (AUTO) 10 % (2-9); NEUTROPHILS # (AUTO) 3.81 x10^3/uL (1.8-6.8); NEUTROPHILS % (AUTO) 65 % (42-75); PLATELET COUNT 112 x10^3/uL (130-400); RED BLOOD COUNT 3.16 x10^6/uL (4.38-5.82); RED CELL DISTRIBUTION WIDTH 16.1 % (9.4-14.8)
[2018-12-01 06:24] VITALS: BP 119/65
[2018-12-01] MEDS: METOPROLOL SUCCINATE 50 MG TAB.ER.24H PO SCH (06:34)
[2018-12-01] MEDS: ASPIRIN 81 MG TABLET EC PO SCH (06:34)
[2018-12-01] MEDS: INSULIN LISPRO 100 UNITS/ML, PEN SQ-INSULIN SCH ×3 (06:34→16:35)
[2018-12-01 08:42] VITALS: BP 136/77
[2018-12-01] MEDS: CLOPIDOGREL 75 MG TABLET PO SCH (08:45)
[2018-12-01] MEDS: TAMSULOSIN 0.4 MG CAP.ER.24H PO SCH (08:45)
[2018-12-01] MEDS: ISOSORBIDE MONONITRATE ER 30 MG TABLET PO SCH (08:45)
[2018-12-01] MEDS: AMLODIPINE 2.5 MG TABLET PO SCH (08:45)
[2018-12-01] MEDS: AMIODARONE 200 MG TABLET PO SCH (08:46)
[2018-12-01 12:55] VITALS: BP 158/93
[2018-12-01 15:56] VITALS: BP 120/71
== END 2018-12-03 10:19 | disposition home or self-care (01) | DRG 699 ==
LOC: ED 22:30 → EDIP 11-27 01:24 → 4NOR 11-27 02:20 → DCLOUNGE 12-01 16:58
PROVIDERS: ADMIT Internal Medicine; ATTEND Internal Medicine
PROC: 0T9B70Z Drainage of Bladder with Drainage Device, Via Natural or Artificial Opening (ICD-10-PCS; principal; 2018-11-27)
DX: S37.30XA Unspecified injury of urethra, initial encounter (principal); T83.511A Infection and inflammatory reaction due to indwelling urethral catheter, initial encounter; I13.0 Hypertensive heart and chronic kidney disease with heart failure and stage 1 through stage 4 chronic kidney disease, or unspecified chronic kidney disease; I50.20 Unspecified systolic (congestive) heart failure; N18.4 Chronic kidney disease, stage 4 (severe); B96.5 Pseudomonas (aeruginosa) (mallei) (pseudomallei) as the cause of diseases classified elsewhere; D64.9 Anemia, unspecified; E11.22 Type 2 diabetes mellitus with diabetic chronic kidney disease; G89.11 Acute pain due to trauma; H35.30 Unspecified macular degeneration; I25.10 Atherosclerotic heart disease of native coronary artery without angina pectoris; M10.9 Gout, unspecified; Z16.23 Resistance to quinolones and fluoroquinolones; Z79.02 Long term (current) use of antithrombotics/antiplatelets; Z79.82 Long term (current) use of aspirin; Z79.84 Long term (current) use of oral hypoglycemic drugs; Z79.899 Other long term (current) drug therapy; I25.2 Old myocardial infarction; Z85.828 Personal history of other malignant neoplasm of skin; Z90.49 Acquired absence of other specified parts of digestive tract
CPT/HCPCS: 36415; 51702; 80048; 80053; 81001; 82040; 82962; 83735; 84100; 84550; 85025; 85610; 85730; 87040; 87077; 87086; 87186; 96374; G0378; J0696; J2405; J2543; J1815

== ENCOUNTER 2018-12-04 17:05 | Inpatient (IN) | payer MEDICARE ==
[~2018-12-04] VITALS: Ht 180.3 cm; Wt 113.6 kg
--- NOTE | 2018-12-04 17:27 | NUR ---
PT TO ROOM BY WHEELCHAIR WITH FAMILY AND TECHS. PT ASSISTED TO GURLENNIE. FAMILY REPORTS SOB X SEVERAL DAYS AND DECREASED LANDERS OUT PUT. LANDERS CHECKED BY UROLOGY THIS AM AND WAS TOLD THAT "IT WAS TOO SOON FOR LANDERS TO BE PULLED AND THERE IS NO BLOCKAGE". R LOWER LUNG BASE COARSE, BLE +3 PITTING EDEMA NOTED. TACHYPNEIC, RR 30'S. SPO2 >90% ON RA. NO ACCESSORY MUSCLE USE NOTED. PT APPEARS JAUNDICE; OTHERWISE WARM/DRY. HX OF KIDNEY FAILURE, NO DIALYSIS/COPD/[place]. EKG COMPLETED UPON ARRIVAL TO ROOM. ERP AT BEDSIDE FOR INITIAL ASSESSMENT BP/SPO2/ECG MONITORING IN PLACE.
[2018-12-04] MEDS ORDERED: VANCOMYCIN PER PHARMACY MC ONE (18:30)
[2018-12-04] MEDS ORDERED: VANCOMYCIN 2,000 MG in SODIUM CHLORIDE 0.9% 500 ML IV ONE (18:30)
[2018-12-04] MEDS ORDERED: CEFTRIAXONE PMX 1GM/50ML 50 ML IVPB ONE (18:30)
[2018-12-04] MEDS ORDERED: CEFTRIAXONE PMX 1GM/50ML 50 ML ONE (18:39)
[2018-12-04 18:46] LABS: BASOPHILS # (AUTO) 0.13 x10^3/uL (0-0.1); BASOPHILS % (AUTO) 1 % (0-1); EOSINOPHILS % (AUTO) 0 % (1-7); LYMPHOCYTES # (AUTO) 0.38 x10^3/uL (1-3.4); LYMPHOCYTES % (AUTO) 2 % (22-44); MD NO; MEAN CORPUSCULAR HEMOGLOBIN 31.8 pg (27.5-34.5); MEAN CORPUSCULAR HGB CONC 33.9 g/dL (33.2-36.2); MEAN CORPUSCULAR VOLUME 93.7 fL (81-97); MEAN PLATELET VOLUME 10.5 fL (7.4-10.4); MONOCYTES # (AUTO) 0.95 x10^3/uL (0.2-0.8); MONOCYTES % (AUTO) 6 % (2-9); NEUTROPHILS # (AUTO) 14.93 x10^3/uL (1.8-6.8); NEUTROPHILS % (AUTO) 91 % (42-75); PLATELET COUNT 133 x10^3/uL (130-400); RED BLOOD COUNT 3.36 x10^6/uL (4.38-5.82); RED CELL DISTRIBUTION WIDTH 16.1 % (9.4-14.8)
--- NOTE | 2018-12-04 18:46 | NUR ---
IV PLACED BY US. BC X1 DRAWN WITH IV START. LAB IN TO DRAW SECOND BC. ABX INITIATED. BC X2 DRAWN PRIOR TO ADMIN. FAMILY AT BEDSIDE. PT MOSTLY SLEEPY, ARROUSABLE TO VOICE . ANSWERS QUESTIONS/FOLLOWS COMMANDS AND DRIFTS QUICKLY BACK TO SLEEP. BP/SPO2/ECG MONITORING IN PLACE. O2 PLACED IN MOUTH PT DESATS WHILE SLEEPING, SPO2 >90% ON 2L O2. NSR ON MONITOR.
[2018-12-04 18:56] LABS: INTERNATIONAL NORMALIZED RATIO 1.06 (0.93-1.1); PROTHROMBIN TIME 11.1 Seconds (9.6-11.5)
[2018-12-04 18:58] LABS: CHLORIDE 103 mmol/L (98-107)
[2018-12-04 19:06] LABS: ALANINE AMINOTRANSFERASE 31 U/L (12-78); ALBUMIN 3.6 g/dL (3.4-5.0); ALKALINE PHOSPHATASE 92 U/L (45-117); ANION GAP 11 mmol/L (5-15); BILIRUBIN,TOTAL 0.9 mg/dL (0.2-1.0); CREATININE 3.05 mg/dL (0.7-1.3)
--- NOTE | 2018-12-04 19:13 | NUR ---
SPOKE WITH PROVIDER REGARDING NS BOLUS FLUIDS FOR SEPSIS, PT IS NOT HOTN AND WOULD NOT LIKE IVF STARTED.
--- NOTE | 2018-12-04 19:14 | NUR ---
INFORMED OF ELEVATED TROP.
[2018-12-04] MEDS ORDERED: SODIUM CHLORIDE 0.9% 1,000 ML IV ONE (19:18)
[2018-12-04] MEDS ORDERED: ASPIRIN 325 MG TABLET PO STA (19:18)
--- NOTE | 2018-12-04 19:19 | NUR ---
BLANKET AND PILLOW GIVEN TO PT FOR COMFORT, BEAR PAW ON PROVIDING HEAT FOR PT.
[2018-12-04 19:25] LABS: CULTURE INDICATED? YES; MICROSCOPIC INDICATED
[2018-12-04] MEDS ORDERED: PIPERACILLIN/TAZO/PMX 3.375GM 50 ML IV ONE (19:30)
[2018-12-04] MEDS ORDERED: ASPIRIN 81 MG TABLET CHEW ONE (19:51)
[2018-12-04] MEDS ORDERED: PIPERACILLIN/TAZO/PMX 3.375GM 50 ML ONE (19:52)
--- NOTE | 2018-12-04 20:05 | NUR ---
PT MEDICATED PER EMAR W/ ASPIRIN AND IVF. FAMILY REPORTS THAT PT HAS A HARD TIME SWALLOWING "LARGE PILLS". ERP AWARE. OKAY TO ADMIN CHEWABLE ASA PER ERP. PT AWAKE AND TALKATIVE. ASA ADMIN'D WO DIFFICULTY. PT SITTING UP IN [facility], NAD NOTED. BP/SPO2/ECG MONITORING IN PLACE. SINUS TACH ON MONITOR. RR 20. ZOSYN HELD UNTIL VANCO COMPLETED. AWAITING ADMIT.
--- NOTE | 2018-12-04 21:05 | NUR ---
REPORT TO NINA JACKSON. AWA NOT YET COMPLETED. GRAHAMN WITH PT TO BE HUNG BY FLOOR RN. JACKSON AWARE AND AGREES
[2018-12-04 22:00] VITALS: BP 114/84
[2018-12-04] MEDS ORDERED: SODIUM CHLORIDE 0.9% 1,000 ML IV SCH (22:38)
[2018-12-04] MEDS ORDERED: DOCUSATE 100 MG CAPSULE PO PRN (23:00)
[2018-12-04] MEDS ORDERED: hydrALAzine 20 MG/ML, 1ML IVPush PRN (23:00)
[2018-12-04] MEDS ORDERED: OXYcodone IR 5MG TABLET PO PRN (23:00)
[2018-12-04] MEDS ORDERED: ACETAMINOPHEN 325 MG TABLET PO PRN (23:00)
[2018-12-04] MEDS ORDERED: PROMETHAZINE 25 MG/ML, 1ML IM PRN (23:00)
[2018-12-04] MEDS ORDERED: ONDANSETRON ODT 4 MG PO PRN (23:00)
[2018-12-04] MEDS ORDERED: POLYETHYLENE GLYCOL 17 GM PACKET PO PRN (23:00)
[2018-12-04] MEDS ORDERED: BISACODYL 10 MG SUPP PR PRN (23:00)
[2018-12-04 23:25] LABS: HEMOGLOBIN A1C 5.7 % (4.2-6.3)
[2018-12-04 23:27] LABS: FREE T4 (FREE THYROXINE) 1.6 ng/dL (0.76-1.46); THYROID STIMULATING HORMONE 1.23 mIU/L (0.358-3.740)
[2018-12-04] MEDS: LACTOBACILLUS CHEW TABLET PO SCH (23:56)
[2018-12-04] MEDS: MULTIVITAMIN 1 TABLET PO SCH (23:56)
[2018-12-04] MEDS: ATORVASTATIN 80 MG TABLET PO SCH (23:56)
[2018-12-04] MEDS: HEPARIN 5,000 UNITS/ML, 1ML SQ SCH (23:57)
[2018-12-05 00:17] VITALS: BP 124/85
[2018-12-05] MEDS ORDERED: SIMETHICONE 125 MG CHEW TAB PO ONE (01:00)
[2018-12-05] MEDS: morphine SULFATE 10 MG/ML, 1ML IVPush PRN ×3 (03:24→17:50)
[2018-12-05 05:44] LABS: MEAN CORPUSCULAR HEMOGLOBIN 31.5 pg (27.5-34.5); MEAN CORPUSCULAR HGB CONC 33.9 g/dL (33.2-36.2); MEAN PLATELET VOLUME 11.1 fL (7.4-10.4); PLATELET COUNT 120 x10^3/uL (130-400); RED BLOOD COUNT 3.05 x10^6/uL (4.38-5.82); RED CELL DISTRIBUTION WIDTH 15.9 % (9.4-14.8)
[2018-12-05 05:53] LABS: CHLORIDE 109 mmol/L (98-107)
[2018-12-05 06:37] LABS: ALANINE AMINOTRANSFERASE 25 U/L (12-78); ALBUMIN 3.1 g/dL (3.4-5.0); ALKALINE PHOSPHATASE 72 U/L (45-117); ANION GAP 12 mmol/L (5-15); BILIRUBIN,TOTAL 0.6 mg/dL (0.2-1.0); CALCIUM 8.4 mg/dL (8.5-10.1); CHOL/HDL RATIO 1.7; CHOLESTEROL, TOTAL 68 mg/dL (140-239); CREATININE 2.97 mg/dL (0.7-1.3); HDL CHOL % 59 % (26-37); HDL CHOLESTEROL (DIRECT) 40 mg/dL (40-60); LDL CHOLESTEROL,CALCULATED 20 mg/dL (54-169); LDL/HDL RATIO 0.5 (0.5-3.0); TOTAL PROTEIN 6.2 g/dL (6.4-8.2); TRIGLYCERIDES 41 mg/dL (50-200); VLDL CHOLESTEROL 8 mg/dL (0-25)
[2018-12-05] MEDS: PIPERACILLIN/TAZO/PMX 2.25GM 50 ML IV SCH ×4 (06:47→20:04)
[2018-12-05] MEDS: METOPROLOL SUCCINATE 50 MG TAB.ER.24H PO SCH (06:50)
[2018-12-05] MEDS: HEPARIN 5,000 UNITS/ML, 1ML SQ SCH (07:41)
[2018-12-05 07:44] VITALS: BP 98/64
[2018-12-05] MEDS ORDERED: HEPARIN 5,000 UNITS/ML, 1ML IV ONE (08:00)
[2018-12-05 08:03] LABS: BASOPHILS # (AUTO) 0.01 x10^3/uL (0-0.1); BASOPHILS % (AUTO) 0 % (0-1); EOSINOPHILS # (AUTO) 0.01 x10^3/uL (0-0.4); EOSINOPHILS % (AUTO) 0 % (1-7); LYMPHOCYTES # (AUTO) 1.17 x10^3/uL (1-3.4); LYMPHOCYTES % (AUTO) 9 % (22-44); MD SCAN; MONOCYTES # (AUTO) 1.86 x10^3/uL (0.2-0.8); MONOCYTES % (AUTO) 14 % (2-9); NEUTROPHILS # (AUTO) 10.54 x10^3/uL (1.8-6.8); NEUTROPHILS % (AUTO) 78 % (42-75)
[2018-12-05] MEDS: INSULIN LISPRO 100 UNITS/ML, PEN SQ-INSULIN SCH ×5 (08:04→22:40)
[2018-12-05] MEDS ORDERED: ISOSORBIDE MONONITRATE ER 30 MG TABLET PO SCH (09:00)
[2018-12-05] MEDS ORDERED: GLIMEPIRIDE 1 MG TABLET PO SCH (09:00)
[2018-12-05] MEDS ORDERED: AMLODIPINE 2.5 MG TABLET PO SCH (09:00)
[2018-12-05] MEDS: HEPARIN 25,000 UNITS/500ML PMX 500 ML IV PRN (09:10)
[2018-12-05] MEDS: LINEZOLID PMX 600MG/300ML 300 ML IV SCH ×3 (09:57→21:03)
[2018-12-05] MEDS: CHOLECALCIFEROL 1,000 UNIT TABLET PO SCH (09:59)
[2018-12-05] MEDS: SODIUM BICARBONATE 650 MG TABLET PO SCH (10:00)
[2018-12-05] MEDS: CLOPIDOGREL 75 MG TABLET PO SCH (10:00)
[2018-12-05] MEDS: TAMSULOSIN 0.4 MG CAP.ER.24H PO SCH (10:00)
[2018-12-05] MEDS: CYANOCOBALOMIN 100MCG TABLET PO SCH (10:00)
[2018-12-05] MEDS: AMIODARONE 200 MG TABLET PO SCH (10:00)
[2018-12-05] MEDS: DOXYCYCLINE 100MG TABLET PO SCH ×2 (10:00→22:37)
[2018-12-05] MEDS: ASPIRIN 81 MG TABLET EC PO SCH (10:00)
[2018-12-05] MEDS: MULTIVITAMIN 1 TABLET PO SCH ×2 (10:01→22:37)
[2018-12-05] MEDS: LACTOBACILLUS CHEW TABLET PO SCH ×3 (10:01→22:36)
[2018-12-05] MEDS: ASCORBIC ACID 500 MG TABLET PO SCH (10:01)
[2018-12-05 13:28] VITALS: BP 105/70
[2018-12-05] MEDS ORDERED: FUROSEMIDE 40 MG/4 ML IV ONE (14:00)
[2018-12-05] MEDS ORDERED: NITROGLYCERIN/D5W PMX 250 ML IV PRN (15:30)
[2018-12-05] MEDS: HEPARIN 5,000 UNITS/ML, 1ML IV PRN ×2 (16:04→23:25)
[2018-12-05] MEDS ORDERED: AMIODARONE 150 MG in DEXTROSE 5% 100 ML IV ONE (19:12)
[2018-12-05] MEDS ORDERED: FILTER 0.22 MICRON FOR AMIODARONE IV PRN (19:30)
[2018-12-05] MEDS: ATORVASTATIN 80 MG TABLET PO SCH (22:37)
[2018-12-05] MEDS: AMIODARONE 900 MG in DEXTROSE 5% 482 ML IV PRN (23:57)
[2018-12-06] MEDS: morphine SULFATE 10 MG/ML, 1ML IVPush PRN ×2 (01:05→06:01)
[2018-12-06] MEDS: PIPERACILLIN/TAZO/PMX 2.25GM 50 ML IV SCH ×4 (04:05→21:05)
[2018-12-06] MEDS: METOPROLOL SUCCINATE 50 MG TAB.ER.24H PO SCH (06:00)
[2018-12-06] MEDS: INSULIN LISPRO 100 UNITS/ML, PEN SQ-INSULIN SCH ×4 (06:40→21:10)
[2018-12-06 06:42] LABS: BASOPHILS # (AUTO) 0.05 x10^3/uL (0-0.1); BASOPHILS % (AUTO) 1 % (0-1); EOSINOPHILS # (AUTO) 0.06 x10^3/uL (0-0.4); EOSINOPHILS % (AUTO) 1 % (1-7); LYMPHOCYTES # (AUTO) 1.22 x10^3/uL (1-3.4); LYMPHOCYTES % (AUTO) 11 % (22-44); MD NO; MEAN CORPUSCULAR HEMOGLOBIN 32.3 pg (27.5-34.5); MEAN CORPUSCULAR HGB CONC 34.5 g/dL (33.2-36.2); MEAN CORPUSCULAR VOLUME 93.5 fL (81-97); MEAN PLATELET VOLUME 11.1 fL (7.4-10.4); MONOCYTES # (AUTO) 1.15 x10^3/uL (0.2-0.8); MONOCYTES % (AUTO) 10 % (2-9); NEUTROPHILS # (AUTO) 8.64 x10^3/uL (1.8-6.8); NEUTROPHILS % (AUTO) 78 % (42-75); PLATELET COUNT 113 x10^3/uL (130-400); RED BLOOD COUNT 3.08 x10^6/uL (4.38-5.82); RED CELL DISTRIBUTION WIDTH 15.8 % (9.4-14.8)
[2018-12-06 06:54] LABS: ALANINE AMINOTRANSFERASE 29 U/L (12-78); ALBUMIN 3.1 g/dL (3.4-5.0); ANION GAP 11 mmol/L (5-15); CHLORIDE 104 mmol/L (98-107); CREATININE 3.37 mg/dL (0.7-1.3)
[2018-12-06 06:57] LABS: ALKALINE PHOSPHATASE 72 U/L (45-117); BILIRUBIN,TOTAL 0.6 mg/dL (0.2-1.0); TOTAL PROTEIN 6.5 g/dL (6.4-8.2)
[2018-12-06] MEDS: HEPARIN 5,000 UNITS/ML, 1ML IV PRN ×2 (07:34→15:30)
[2018-12-06] MEDS: HEPARIN 25,000 UNITS/500ML PMX 500 ML IV PRN (07:36)
[2018-12-06] MEDS ORDERED: FUROSEMIDE 40 MG/4 ML ONE (08:31)
[2018-12-06] MEDS: LACTOBACILLUS CHEW TABLET PO SCH ×3 (09:34→20:48)
[2018-12-06] MEDS: SODIUM BICARBONATE 650 MG TABLET PO SCH (09:34)
[2018-12-06] MEDS: CLOPIDOGREL 75 MG TABLET PO SCH (09:35)
[2018-12-06] MEDS: MULTIVITAMIN 1 TABLET PO SCH ×2 (09:35→20:48)
[2018-12-06] MEDS: CYANOCOBALOMIN 100MCG TABLET PO SCH (09:35)
[2018-12-06] MEDS: CHOLECALCIFEROL 1,000 UNIT TABLET PO SCH (09:35)
[2018-12-06] MEDS: ISOSORBIDE MONONITRATE ER 30 MG TABLET PO SCH (09:37)
[2018-12-06] MEDS: ASCORBIC ACID 500 MG TABLET PO SCH (09:37)
[2018-12-06] MEDS: TAMSULOSIN 0.4 MG CAP.ER.24H PO SCH (09:37)
[2018-12-06] MEDS: DOXYCYCLINE 100MG TABLET PO SCH ×2 (09:38→20:48)
[2018-12-06] MEDS: AMIODARONE 200 MG TABLET PO SCH (09:38)
[2018-12-06] MEDS: ASPIRIN 81 MG TABLET EC PO SCH (09:43)
[2018-12-06] MEDS: LINEZOLID PMX 600MG/300ML 300 ML IV SCH ×2 (09:44→22:08)
[2018-12-06] MEDS ORDERED: LIDODERM 5% PATCH TD SCH (10:00)
[2018-12-06] MEDS ORDERED: FUROSEMIDE 40 MG/4 ML IV ONE (15:00)
[2018-12-06] MEDS: AMIODARONE 900 MG in DEXTROSE 5% 482 ML IV PRN (17:49)
[2018-12-06] MEDS: ATORVASTATIN 80 MG TABLET PO SCH (20:48)
[2018-12-07] MEDS: HEPARIN 25,000 UNITS/500ML PMX 500 ML IV PRN ×2 (01:14→18:44)
[2018-12-07] MEDS: PIPERACILLIN/TAZO/PMX 2.25GM 50 ML IV SCH ×3 (02:53→17:04)
[2018-12-07 03:30] LABS: BASOPHILS # (AUTO) 0.03 x10^3/uL (0-0.1); BASOPHILS % (AUTO) 0 % (0-1); EOSINOPHILS # (AUTO) 0.26 x10^3/uL (0-0.4); EOSINOPHILS % (AUTO) 2 % (1-7); LYMPHOCYTES # (AUTO) 1.06 x10^3/uL (1-3.4); LYMPHOCYTES % (AUTO) 10 % (22-44); MD NO; MEAN CORPUSCULAR HEMOGLOBIN 31.5 pg (27.5-34.5); MEAN CORPUSCULAR HGB CONC 33.9 g/dL (33.2-36.2); MEAN CORPUSCULAR VOLUME 92.9 fL (81-97); MEAN PLATELET VOLUME 11.5 fL (7.4-10.4); MONOCYTES # (AUTO) 1.09 x10^3/uL (0.2-0.8); MONOCYTES % (AUTO) 10 % (2-9); NEUTROPHILS # (AUTO) 8.48 x10^3/uL (1.8-6.8); NEUTROPHILS % (AUTO) 78 % (42-75); PLATELET COUNT 123 x10^3/uL (130-400); RED BLOOD COUNT 2.78 x10^6/uL (4.38-5.82); RED CELL DISTRIBUTION WIDTH 15.9 % (9.4-14.8)
[2018-12-07 03:40] LABS: ALANINE AMINOTRANSFERASE 44 U/L (12-78); ALBUMIN 2.8 g/dL (3.4-5.0); ANION GAP 11 mmol/L (5-15); CALCIUM 7.8 mg/dL (8.5-10.1); CHLORIDE 98 mmol/L (98-107)
[2018-12-07 03:43] LABS: ALKALINE PHOSPHATASE 67 U/L (45-117); BILIRUBIN,TOTAL 0.6 mg/dL (0.2-1.0); CREATININE 3.86 mg/dL (0.7-1.3); TOTAL PROTEIN 6.1 g/dL (6.4-8.2)
[2018-12-07] MEDS: METOPROLOL SUCCINATE 50 MG TAB.ER.24H PO SCH (08:33)
[2018-12-07] MEDS: INSULIN LISPRO 100 UNITS/ML, PEN SQ-INSULIN SCH ×4 (09:29→22:01)
[2018-12-07] MEDS: TAMSULOSIN 0.4 MG CAP.ER.24H PO SCH (09:36)
[2018-12-07] MEDS: SODIUM BICARBONATE 650 MG TABLET PO SCH (09:37)
[2018-12-07] MEDS: CHOLECALCIFEROL 1,000 UNIT TABLET PO SCH (09:38)
[2018-12-07] MEDS: CLOPIDOGREL 75 MG TABLET PO SCH (09:40)
[2018-12-07] MEDS: DOXYCYCLINE 100MG TABLET PO SCH ×2 (09:40→22:00)
[2018-12-07] MEDS: ASCORBIC ACID 500 MG TABLET PO SCH (09:42)
[2018-12-07] MEDS: AMIODARONE 200 MG TABLET PO SCH ×2 (09:42→22:00)
[2018-12-07] MEDS: ISOSORBIDE MONONITRATE ER 30 MG TABLET PO SCH (09:43)
[2018-12-07] MEDS: CYANOCOBALOMIN 100MCG TABLET PO SCH (09:44)
[2018-12-07] MEDS: ASPIRIN 81 MG TABLET EC PO SCH (09:45)
[2018-12-07] MEDS: LACTOBACILLUS CHEW TABLET PO SCH ×3 (09:46→22:00)
[2018-12-07] MEDS: MULTIVITAMIN 1 TABLET PO SCH ×2 (09:46→22:00)
[2018-12-07] MEDS: LINEZOLID PMX 600MG/300ML 300 ML IV SCH (10:52)
[2018-12-07 19:06] VITALS: BP 149/76
[2018-12-07 21:58] VITALS: BP 138/80
[2018-12-07] MEDS: ATORVASTATIN 80 MG TABLET PO SCH (22:00)
[2018-12-07] MEDS: LINEZOLID 600 MG TABLET PO SCH (23:24)
[2018-12-08 00:24] VITALS: BP 142/81
[2018-12-08] MEDS: PIPERACILLIN/TAZO/PMX 2.25GM 50 ML IV SCH ×3 (00:59→18:42)
[2018-12-08 02:20] VITALS: BP 129/69
[2018-12-08 04:47] LABS: CHLORIDE 95 mmol/L (98-107)
[2018-12-08 04:51] LABS: ANION GAP 15 mmol/L (5-15); CALCIUM 7.9 mg/dL (8.5-10.1); CREATININE 4.32 mg/dL (0.7-1.3)
[2018-12-08] MEDS: INSULIN LISPRO 100 UNITS/ML, PEN SQ-INSULIN SCH ×4 (07:00→21:04)
[2018-12-08] MEDS ORDERED: ACETAMINOPHEN 325 MG TABLET PO PRN (08:30)
[2018-12-08 08:34] VITALS: BP 98/68
[2018-12-08] MEDS: LACTOBACILLUS CHEW TABLET PO SCH ×3 (09:00→20:45)
[2018-12-08] MEDS ORDERED: FUROSEMIDE 40 MG/4 ML IV ONE (09:00)
[2018-12-08] MEDS: HEPARIN 25,000 UNITS/500ML PMX 500 ML IV PRN (12:08)
--- NOTE | 2018-12-08 14:09 | NUR ---
Recommend initiation of CHOPPED solids and NECTAR THICK LIQUID diet with adherence to the following strategies: HOB at 90* PATIENT MUST BE AWAKE AND ALERT FOR PO Alternate liquids and solids Meds floated whole in pudding, nectar thick liquid wash between pills, allow patient to control NTL cup Distant supervision Assistance with meal tray setup [place] swallow precautions sign posted in patient's room Addendum: 12/08/18 at 1421 by Steff MATTA Amended: Links added.
[2018-12-08] MEDS: ASPIRIN 81 MG TABLET EC PO SCH (14:27)
[2018-12-08] MEDS: CLOPIDOGREL 75 MG TABLET PO SCH (14:28)
[2018-12-08] MEDS: ASCORBIC ACID 500 MG TABLET PO SCH (14:28)
[2018-12-08] MEDS: CHOLECALCIFEROL 1,000 UNIT TABLET PO SCH (14:28)
[2018-12-08] MEDS: CYANOCOBALOMIN 100MCG TABLET PO SCH (14:28)
[2018-12-08] MEDS: MULTIVITAMIN 1 TABLET PO SCH ×2 (14:28→20:53)
[2018-12-08] MEDS: ISOSORBIDE MONONITRATE ER 30 MG TABLET PO SCH (14:29)
[2018-12-08] MEDS: TAMSULOSIN 0.4 MG CAP.ER.24H PO SCH (14:29)
[2018-12-08] MEDS: AMIODARONE 200 MG TABLET PO SCH ×2 (14:29→20:45)
[2018-12-08] MEDS: DOXYCYCLINE 100MG TABLET PO SCH ×2 (14:29→20:45)
[2018-12-08] MEDS: SODIUM BICARBONATE 650 MG TABLET PO SCH (14:30)
[2018-12-08] MEDS: LINEZOLID 600 MG TABLET PO SCH ×2 (14:34→20:44)
[2018-12-08 19:55] VITALS: BP 116/72
[2018-12-08] MEDS: ATORVASTATIN 80 MG TABLET PO SCH (20:45)
[2018-12-08] MEDS: CARVEDILOL 3.125 MG TABLET PO SCH (20:45)
[2018-12-09 01:00] VITALS: BP 100/69
[2018-12-09] MEDS: PIPERACILLIN/TAZO/PMX 2.25GM 50 ML IV SCH ×3 (01:00→17:55)
[2018-12-09] MEDS: HEPARIN 25,000 UNITS/500ML PMX 500 ML IV PRN ×2 (05:03→22:14)
[2018-12-09 05:07] VITALS: BP 113/71
[2018-12-09] MEDS: CARVEDILOL 3.125 MG TABLET PO SCH ×2 (05:11→17:55)
[2018-12-09 05:52] LABS: ANION GAP 15 mmol/L (5-15); CALCIUM 8.3 mg/dL (8.5-10.1); CHLORIDE 94 mmol/L (98-107); CREATININE 4.63 mg/dL (0.7-1.3)
[2018-12-09] MEDS: INSULIN LISPRO 100 UNITS/ML, PEN SQ-INSULIN SCH ×4 (07:00→22:03)
[2018-12-09 07:55] VITALS: BP 117/69
[2018-12-09] MEDS ORDERED: FUROSEMIDE 100 MG/10 ML IV ONE (09:00)
[2018-12-09] MEDS: MULTIVITAMIN 1 TABLET PO SCH ×2 (13:17→13:33)
[2018-12-09] MEDS: AMIODARONE 200 MG TABLET PO SCH ×2 (13:17→22:03)
[2018-12-09] MEDS: TAMSULOSIN 0.4 MG CAP.ER.24H PO SCH (13:18)
[2018-12-09] MEDS: CLOPIDOGREL 75 MG TABLET PO SCH (13:18)
[2018-12-09] MEDS: DOXYCYCLINE 100MG TABLET PO SCH ×2 (13:18→22:03)
[2018-12-09] MEDS: SODIUM BICARBONATE 650 MG TABLET PO SCH ×2 (13:18→13:33)
[2018-12-09] MEDS: LACTOBACILLUS CHEW TABLET PO SCH ×3 (13:19→22:03)
[2018-12-09] MEDS: ISOSORBIDE MONONITRATE ER 30 MG TABLET PO SCH (13:19)
[2018-12-09] MEDS: ASPIRIN 81 MG TABLET EC PO SCH (13:22)
[2018-12-09] MEDS: ASCORBIC ACID 500 MG TABLET PO SCH ×2 (13:23→13:33)
[2018-12-09] MEDS: CHOLECALCIFEROL 1,000 UNIT TABLET PO SCH ×2 (13:23→13:32)
[2018-12-09] MEDS: CYANOCOBALOMIN 100MCG TABLET PO SCH (13:33)
[2018-12-09] MEDS: ONDANSETRON 2MG/ML, 2ML IVPush PRN (13:48)
[2018-12-09 14:50] VITALS: BP 104/62
[2018-12-09 20:12] VITALS: BP 115/61
[2018-12-09] MEDS: ATORVASTATIN 80 MG TABLET PO SCH (22:04)
[2018-12-10] MEDS: PIPERACILLIN/TAZO/PMX 2.25GM 50 ML IV SCH ×3 (00:46→18:21)
[2018-12-10 00:58] VITALS: BP 98/61
[2018-12-10 06:03] LABS: ANION GAP 14 mmol/L (5-15); CHLORIDE 95 mmol/L (98-107); CREATININE 4.86 mg/dL (0.7-1.3); TOTAL IRON BINDING CAPACITY 154 mcg/dL (250-450)
[2018-12-10 06:05] LABS: % IRON SATURATION 32 % (20-55); IRON LEVEL 49 mcg/dL (65-175)
[2018-12-10] MEDS: CARVEDILOL 3.125 MG TABLET PO SCH ×2 (06:46→17:09)
[2018-12-10] MEDS: INSULIN LISPRO 100 UNITS/ML, PEN SQ-INSULIN SCH ×4 (07:00→21:36)
[2018-12-10] MEDS: HEPARIN 5,000 UNITS/ML, 1ML IV PRN (07:34)
[2018-12-10 07:38] VITALS: BP 127/78
[2018-12-10] MEDS ORDERED: SUCCINYLCHOLINE 20 MG/ML, 10ML ONE (08:59)
[2018-12-10] MEDS ORDERED: PROPOFOL 10 MG/ML, 100ML IV ONE (08:59)
[2018-12-10] MEDS ORDERED: ETOMIDATE 20 MG/10 ML ONE (08:59)
[2018-12-10] MEDS: TAMSULOSIN 0.4 MG CAP.ER.24H PO SCH (09:00)
[2018-12-10] MEDS: DOXYCYCLINE 100MG TABLET PO SCH (09:00)
[2018-12-10] MEDS: LACTOBACILLUS CHEW TABLET PO SCH ×3 (09:00→21:00)
[2018-12-10] MEDS: ASPIRIN 81 MG TABLET EC PO SCH (09:00)
[2018-12-10] MEDS: ISOSORBIDE MONONITRATE ER 30 MG TABLET PO SCH (09:00)
[2018-12-10] MEDS: AMIODARONE 200 MG TABLET PO SCH ×2 (09:00→21:00)
[2018-12-10] MEDS: CLOPIDOGREL 75 MG TABLET PO SCH (09:00)
[2018-12-10 12:57] VITALS: BP 132/80
[2018-12-10 13:23] LABS: FIO2 ROOM AIR %
[2018-12-10] MEDS: DOXYCYCLINE 100 MG in DEXTROSE 5% 250 ML IV SCH (14:25)
[2018-12-10] MEDS: HEPARIN 25,000 UNITS/500ML PMX 500 ML IV PRN (15:09)
[2018-12-10] MEDS ORDERED: AMIODARONE 150 MG in DEXTROSE 5% 100 ML IV ONE (17:30)
[2018-12-10 19:33] VITALS: BP 148/81
[2018-12-10] MEDS: ATORVASTATIN 80 MG TABLET PO SCH (21:00)
[2018-12-11] MEDS: DOXYCYCLINE 100 MG in DEXTROSE 5% 250 ML IV SCH (00:39)
[2018-12-11 00:56] VITALS: BP 134/77
[2018-12-11] MEDS: ONDANSETRON 2MG/ML, 2ML IVPush PRN (00:59)
[2018-12-11] MEDS ORDERED: NALOXONE 0.4 MG/ML, 1ML IVPush ONE (01:00)
[2018-12-11] MEDS ORDERED: NALOXONE 0.4 MG/ML, 1ML ONE (01:02)
[2018-12-11 01:59] LABS: BASOPHILS # (AUTO) 0.01 x10^3/uL (0-0.1); BASOPHILS % (AUTO) 0 % (0-1); EOSINOPHILS # (AUTO) 0.05 x10^3/uL (0-0.4); EOSINOPHILS % (AUTO) 0 % (1-7); LYMPHOCYTES # (AUTO) 1.41 x10^3/uL (1-3.4); LYMPHOCYTES % (AUTO) 11 % (22-44); MD NO; MEAN CORPUSCULAR HEMOGLOBIN 30.7 pg (27.5-34.5); MEAN CORPUSCULAR HGB CONC 31.9 g/dL (33.2-36.2); MEAN CORPUSCULAR VOLUME 96.4 fL (81-97); MEAN PLATELET VOLUME 10.7 fL (7.4-10.4); MONOCYTES % (AUTO) 8 % (2-9); NEUTROPHILS # (AUTO) 10.76 x10^3/uL (1.8-6.8); NEUTROPHILS % (AUTO) 81 % (42-75); PLATELET COUNT 163 x10^3/uL (130-400); RED CELL DISTRIBUTION WIDTH 15.5 % (9.4-14.8)
[2018-12-11] MEDS ORDERED: EPINEPHRINE SYRINGE 0.1 MG/ML, 10ML ONE ×2 (02:00→08:58)
[2018-12-11 02:03] LABS: ALANINE AMINOTRANSFERASE 99 U/L (12-78); ALBUMIN 2.7 g/dL (3.4-5.0); ANION GAP 20 mmol/L (5-15); CALCIUM 8.6 mg/dL (8.5-10.1); CHLORIDE 96 mmol/L (98-107); CREATININE 5.64 mg/dL (0.7-1.3)
[2018-12-11 02:06] LABS: ALKALINE PHOSPHATASE 86 U/L (45-117); BILIRUBIN,TOTAL 0.6 mg/dL (0.2-1.0); TOTAL PROTEIN 6.7 g/dL (6.4-8.2)
[2018-12-11 02:11] LABS: TROPONIN I 0.831 ng/mL (0.000-0.045)
[2018-12-11] MEDS ORDERED: NOREPINEPHRINE 4 MG in SODIUM CHLORIDE 0.9% 246 ML IV PRN ×3 (02:30→15:30)
[2018-12-11] MEDS ORDERED: CODE BLUE RESPONSE XX ONE (02:30)
[2018-12-11 02:47] LABS: BASOPHILS # (AUTO) 0.06 x10^3/uL (0-0.1); BASOPHILS % (AUTO) 0 % (0-1); EOSINOPHILS # (AUTO) 0.06 x10^3/uL (0-0.4); EOSINOPHILS % (AUTO) 0 % (1-7); LYMPHOCYTES % (AUTO) 15 % (22-44); MD NO; MEAN CORPUSCULAR HEMOGLOBIN 31.8 pg (27.5-34.5); MEAN CORPUSCULAR HGB CONC 33.4 g/dL (33.2-36.2); MEAN CORPUSCULAR VOLUME 95.2 fL (81-97); MEAN PLATELET VOLUME 10.9 fL (7.4-10.4); MONOCYTES # (AUTO) 0.54 x10^3/uL (0.2-0.8); MONOCYTES % (AUTO) 3 % (2-9); NEUTROPHILS # (AUTO) 12.93 x10^3/uL (1.8-6.8); NEUTROPHILS % (AUTO) 81 % (42-75); PLATELET COUNT 199 x10^3/uL (130-400); RED BLOOD COUNT 3.27 x10^6/uL (4.38-5.82); RED CELL DISTRIBUTION WIDTH 15.4 % (9.4-14.8)
[2018-12-11] MEDS ORDERED: VASOPRESSIN 100 UNIT in SODIUM CHLORIDE 0.9% 495 ML IV PRN (02:47)
[2018-12-11] MEDS ORDERED: MIDAZOLAM HCL 25 MG in SODIUM CHLORIDE 0.9% 245 ML IV PRN (02:47)
[2018-12-11] MEDS ORDERED: PHENYLEPHRINE 10 MG in SODIUM CHLORIDE 0.9% 249 ML IV PRN (02:47)
[2018-12-11] MEDS ORDERED: SODIUM BICARB 8.4%, 50ML SYRINGE IVPush STA (02:53)
[2018-12-11 02:58] LABS: ALBUMIN 2.6 g/dL (3.4-5.0); ANION GAP 24 mmol/L (5-15); CALCIUM 8.3 mg/dL (8.5-10.1); CHLORIDE 94 mmol/L (98-107)
[2018-12-11] MEDS ORDERED: BISACODYL 10 MG SUPP PR PRN (03:00)
[2018-12-11] MEDS ORDERED: SENNA/DOCUSATE TABLET NG PRN (03:00)
[2018-12-11] MEDS ORDERED: FENTANYL PF 100 MCG/2ML IVPush PRN (03:00)
[2018-12-11] MEDS ORDERED: LACTULOSE 20 GM/30 ML UDC NG PRN (03:00)
[2018-12-11] MEDS ORDERED: SENNA 176 MG/5 ML ORAL SOL NG PRN (03:00)
[2018-12-11] MEDS: ALBUTEROL/IPRATROPIUM 2.5MG/0.5MG, 3 ML INLINE SCH ×6 (03:00→23:10)
[2018-12-11] MEDS ORDERED: PHARMACY MAY ADJ FOR RENAL FX MC SCH (03:00)
[2018-12-11] MEDS: HEPARIN 5,000 UNITS/ML, 1ML SQ SCH ×3 (03:00→20:14)
[2018-12-11] MEDS ORDERED: LIDOCAINE-MPF 1%, 2ML ENDO PRN (03:00)
[2018-12-11 03:05] LABS: ALANINE AMINOTRANSFERASE 1570 U/L (12-78); ALKALINE PHOSPHATASE 158 U/L (45-117); BILIRUBIN,TOTAL 0.7 mg/dL (0.2-1.0); TOTAL PROTEIN 6.4 g/dL (6.4-8.2)
[2018-12-11 03:13] LABS: TROPONIN I 0.977 ng/mL (0.000-0.045)
[2018-12-11] MEDS: PIPERACILLIN/TAZO/PMX 2.25GM 50 ML IV SCH ×3 (03:51→16:54)
[2018-12-11] MEDS ORDERED: LORazepam 2 MG/ML, 1ML IVPush PRN (04:00)
[2018-12-11] MEDS ORDERED: morphine SULFATE 10 MG/ML, 1ML IVPush PRN (04:00)
[2018-12-11] MEDS: INSULIN LISPRO 100 UNITS/ML, PEN SQ-INSULIN SCH ×4 (07:21→17:12)
[2018-12-11] MEDS: AMIODARONE 200 MG TABLET PO SCH (08:09)
[2018-12-11] MEDS: SODIUM BICARBONATE 650 MG TABLET PO SCH (08:11)
[2018-12-11] MEDS: ASPIRIN 81 MG TABLET EC PO SCH (08:11)
[2018-12-11] MEDS ORDERED: FILTER 0.22 MICRON IV SCH (09:00)
[2018-12-11] MEDS ORDERED: PANTOPRAZOLE 40 MG IV IV SCH (09:00)
== END 2018-12-12 05:44 | disposition expired | DRG 871 ==
LOC: ED 18:39 → EDIP 20:00 → 5SO 21:32 → CCU 12-05 15:20 → 5SO 12-07 18:55 → CCU 12-11 02:15
PROVIDERS: ADMIT Internal Medicine; ATTEND Internal Medicine
PROC: 5A12012 Performance of Cardiac Output, Single, Manual (ICD-10-PCS; principal; 2018-12-11)
PROC: 5A1945Z Respiratory Ventilation, 24-96 Consecutive Hours (ICD-10-PCS; 2018-12-11)
PROC: 0BH17EZ Insertion of Endotracheal Airway into Trachea, Via Natural or Artificial Opening (ICD-10-PCS; 2018-12-11)
DX: A41.9 Sepsis, unspecified organism (principal); J15.9 Unspecified bacterial pneumonia; J96.01 Acute respiratory failure with hypoxia; N17.0 Acute kidney failure with tubular necrosis; I21.4 Non-ST elevation (NSTEMI) myocardial infarction; J69.0 Pneumonitis due to inhalation of food and vomit; J96.21 Acute and chronic respiratory failure with hypoxia; R65.21 Severe sepsis with septic shock; I50.23 Acute on chronic systolic (congestive) heart failure; E87.1 Hypo-osmolality and hyponatremia; E87.2 Acidosis; G93.1 Anoxic brain damage, not elsewhere classified; I13.2 Hypertensive heart and chronic kidney disease with heart failure and with stage 5 chronic kidney disease, or end stage renal disease; I48.92 Unspecified atrial flutter; J98.11 Atelectasis; N18.5 Chronic kidney disease, stage 5; D64.9 Anemia, unspecified; E11.22 Type 2 diabetes mellitus with diabetic chronic kidney disease; E11.65 Type 2 diabetes mellitus with hyperglycemia; E66.9 Obesity, unspecified; Z68.34 Body mass index [BMI] 34.0-34.9, adult; G47.33 Obstructive sleep apnea (adult) (pediatric); H35.30 Unspecified macular degeneration; I25.10 Atherosclerotic heart disease of native coronary artery without angina pectoris; I25.5 Ischemic cardiomyopathy; I25.2 Old myocardial infarction; I34.0 Nonrheumatic mitral (valve) insufficiency; I44.30 Unspecified atrioventricular block; I48.0 Paroxysmal atrial fibrillation; R57.0 Cardiogenic shock; R62.7 Adult failure to thrive; Y95 Nosocomial condition; Z51.5 Encounter for palliative care; Z66 Do not resuscitate; Z68.30 Body mass index [BMI] 30.0-30.9, adult; Z79.01 Long term (current) use of anticoagulants; Z85.828 Personal history of other malignant neoplasm of skin; Z87.440 Personal history of urinary (tract) infections; Z87.891 Personal history of nicotine dependence; Z90.49 Acquired absence of other specified parts of digestive tract; Z79.84 Long term (current) use of oral hypoglycemic drugs
CPT/HCPCS: 36415; 36600; 71045; 80048; 80053; 80061; 81001; 82274; 82533; 82803; 82962; 83036; 83540; 83550; 83605; 83735; 83880; 84439; 84443; 84478; 84484; 85018; 85025; 85520; 85610; 86631; 86632; 86635; 86705; 86706; 86738; 87040; 87070; 87081; 87086; 87205; 87340; 87449; 92950; 93005; 93308; 93321; 93325; 94002; 94003; 94640; 96365; 99291; G0378; J0696; J1644; J1940; J2020; J2310; J2405; J2543; J2704; J3370; J7060; J7620; C9113; J0282; J0330; J1815; J2270; J7030; J7040